=== PATIENT | female | born 1955 | race Caucasian/White ===

== ENCOUNTER → 2019-12-24 10:13 | Outpatient (CLI) | payer MEDICARE, OTHER, SELFPAY ==
[2019-12-24 12:16] LABS: Alanine Aminotransferase 20 IU/L (<35); Albumin 4.2 g/dL (3.5-5.0); Albumin Globulin Ratio 1.4 (1.0-2.8); Alkaline Phosphatase 124 U/L (38-126); Aspartate Aminotransferase 21 IU/L (14-36); BUN Creatinine Ratio 21.9 (6-22); Bilirubin Total 0.7 mg/dL (0.2-1.3); Blood Urea Nitrogen 16 mg/dL (7-17); Calcium 9.3 mg/dL (8.4-10.2); Carbon Dioxide 25 mmol/L (22-32); Chloride 105 mmol/L (98-107); Cholesterol 210 mg/dL (140-199); Estimated Glomerular Filt Rate > 60.0 mL/min (>60); Glucose 114 mg/dL (80-110); HDL Cholesterol 52 mg/dL (40-60); HEMOLYSIS < 15 (0-50); LDL Cholesterol Calculated 128 mg/dL (<100); Potassium 4.2 mmol/L (3.4-5.1); Sodium 134 mmol/L (137-145); Total Protein 7.2 g/dL (6.3-8.2); Triglycerides 150 mg/dL (35-150)
== END ==
PROVIDERS: PCP Internal Medicine; Referring Provider Internal Medicine; Visit Provider Internal Medicine
DX: I10 Essential (primary) hypertension (principal); E78.5 Hyperlipidemia, unspecified
CPT/HCPCS: 36415; 80053; 80061

== ENCOUNTER → 2020-10-24 16:16 | Outpatient (CLI) | payer MEDICARE, OTHER, SELFPAY ==
--- NOTE | 2020-10-24 | DI.MRI.S_ITS ---
PROCEDURE: MR CERVICAL SPINE WO CON INDICATIONS: Cervicalgia TECHNIQUE: Noncontrast sagittal T1 spin echo and T2 fast spin echo, sagittal STIR, foraminal oblique sagittal T2 fast spin echo, and axial gradient echo or T2 fast spin echo through the cervical spine. COMPARISON: None. FINDINGS: Image quality: This examination is limited by involuntary motion artifact. Images are repeated, with some improvement. Alignment and Curvature: There is normal bony alignment. Bone Marrow: Marrow demonstrates normal overall signal. Spinal Cord: Visualized spinal cord has normal size and signal. No cerebellar tonsillar herniation. Paraspinous Soft Tissues: No paravertebral masses. Prevertebral soft tissues are normal in thickness. C2-C3: The disc height is well-preserved. Loss of disc signal is seen at this level. A mild degree of generalized disc osteophyte complex is seen. There is [id number] right-sided and minimal left-sided neural foraminal narrowing seen. Mild central canal narrowing is seen. C3-C4: The disc height is well-preserved. Loss of disc signal is seen at this level. Moderate generalized disc osteophyte complex is seen. There is mild right-sided and moderate left-sided facet hypertrophy seen. There is moderate to severe left-sided and at least moderate right-sided neural foraminal narrowing seen. Mild to moderate central canal narrowing is seen, with minimal mass effect upon the ventral spinal cord. C4-C5: Mild loss of disc height is seen. Loss of disc signal is seen. Moderate generalized disc osteophyte complex is seen. There is a central disc protrusion. Moderate facet joint hypertrophy is seen. There is moderate to severe bilateral neural foraminal narrowing seen. Moderate to severe central canal narrowing is seen, with associated mass effect upon the spinal cord. C5-C6: The disc height is well-preserved. Loss of disc signal is seen at this level. Mild to moderate disc osteophyte complex is seen, with a mild central disc osteophyte protrusion. Mild facet joint hypertrophy is seen. Moderate bilateral neural foraminal narrowing is seen. Moderate central canal narrowing is seen. There is associated mass effect upon the ventral spinal cord. C6-C7: The disc height is well-preserved. Loss of disc signal is seen at this level. Mild to moderate disc osteophyte complex is seen. Mild facet joint hypertrophy is seen. Mild bilateral neural foraminal narrowing is seen. Minimal central canal narrowing is seen. C7-T1: Mild loss of disc height is seen. Loss of disc signal is seen. Moderate disc osteophyte complex is seen, which is eccentric to the right. There is moderate to severe right-sided and moderate left-sided neural foraminal narrowing seen. The central canal is widely patent. IMPRESSION: Cervical spine degenerative changes are seen, which are overall worst at the C4-C5 level. Dictated by: Alec Vaughn M.D. on 10/24/2020 at 17:17 Approved by: Alec Vaugnh M.D. on 10/24/2020 at 17:21
== END ==
PROVIDERS: PCP Internal Medicine; Referring Provider Internal Medicine; Visit Provider Internal Medicine
DX: M50.321 Other cervical disc degeneration at C4-C5 level (principal); M48.02 Spinal stenosis, cervical region
CPT/HCPCS: 72141

== ENCOUNTER → 2021-12-20 13:25 | Outpatient (CLI) | payer MEDICARE, OTHER, SELFPAY ==
--- NOTE | 2021-12-20 | DI.MG.S_ITS ---
BILATERAL DIGITAL SCREENING MAMMOGRAM 3D/2D WITH CAD: 12/20/2021 CLINICAL: Routine screening. Comparison is made to exams dated: 05/09/2014 mammogram and 07/11/2015 mammogram - outside facility. There are scattered fibroglandular elements in both breasts. Current study was also evaluated with a Computer Aided Detection (CAD) system. There are benign vascular calcifications in the left breast. No significant masses, calcifications, or other findings are seen in either breast. There has been no significant interval change. IMPRESSION: BENIGN There is no mammographic evidence of malignancy. A 1 year screening mammogram is recommended. Based on the Tyrer Cuzick model (a risk assessment model) the patient's lifetime risk is 4.5% and her 10 year risk is 2.3%. According to the ACR, ACS, and NCCN guidelines, an annual breast MRI exam along with mammogram is recommended if the patient's lifetime risk is 20% or greater. This exam was interpreted at Station ID: [id number]. NOTE: For mammograms, a report in lay terms will be sent to the patient. Approximately 15% of breast malignancies will not be visualized mammographically. In the management of a palpable breast mass, a negative mammogram must not discourage biopsy of a clinically suspicious lesion. Electronically Signed By: Dakota milian/jared:12/25/2021 11:24:40 letter sent: Normal Exam ACR BI-RADS Category 2: Benign Finding(s) 3342F
== END ==
PROVIDERS: PCP Internal Medicine; Referring Provider Internal Medicine; Visit Provider Internal Medicine
DX: Z13.820 Encounter for screening for osteoporosis (principal); Z12.31 Encounter for screening mammogram for malignant neoplasm of breast; Z78.0 Asymptomatic menopausal state; M85.89 Other specified disorders of bone density and structure, multiple sites
CPT/HCPCS: 77063; 77067; 77080

== ENCOUNTER → 2023-10-02 14:48 | Outpatient (CLI) | payer MEDICARE, OTHER, SELFPAY ==
--- NOTE | 2023-10-02 14:50 | DI.MG.S_ITS ---
BILATERAL DIGITAL SCREENING MAMMOGRAM 3D/2D WITH CAD: 10/02/2023 CLINICAL: Routine screening. Comparison is made to exams dated: 12/20/2021 mammogram - [facility], 07/11/2015 mammogram, and 05/09/2014 mammogram - outside facility. There are scattered areas of fibroglandular density in both breasts (category b / 25%-50% glandular tissue). Current study was also evaluated with a Computer Aided Detection (CAD) system. There are benign vascular calcifications in both breasts. No significant masses, calcifications, or other findings are seen in either breast. There has been no significant interval change. IMPRESSION: BENIGN There is no mammographic evidence of malignancy. A 1 year screening mammogram is recommended. Based on the Tyrer Cuzick model (a risk assessment model) the patient's lifetime risk is 4.0% and her 10 year risk is 2.3%. According to the ACR, ACS, and NCCN guidelines, an annual breast MRI exam along with mammogram is recommended if the patient's lifetime risk is 20% or greater. This exam was interpreted at Station ID: [id number]. NOTE: For mammograms, a report in lay terms will be sent to the patient. Approximately 15% of breast malignancies will not be visualized mammographically. In the management of a palpable breast mass, a negative mammogram must not discourage biopsy of a clinically suspicious lesion. Electronically Signed By: Sigrid dupree/jared:10/02/2023 16:03:16 letter sent: Normal Exam ACR BI-RADS Category 2: Benign Finding(s) 3342F
== END ==
PROVIDERS: Referring Provider Internal Medicine; Visit Provider Internal Medicine
DX: Z12.31 Encounter for screening mammogram for malignant neoplasm of breast (principal); R92.323 Mammographic fibroglandular density, bilateral breasts
CPT/HCPCS: 77063; 77067

== ENCOUNTER 2024-07-15 15:35 | Inpatient (IN) | payer MEDICARE, OTHER, SELFPAY ==
[2024-07-15] VITALS (19 sets, daily range): BP systolic 192–234; BP diastolic 86–100; PULSE 53–76; RESP 16–25; TEMP 36.8–36.9; O2SAT 90–99; BMI 33.1
--- NOTE | 2024-07-15 | DI.MRI.S_ITS ---
PROCEDURE: MR HEAD/BRAIN WO CON INDICATIONS: assess for CVA with brain and brainstem MRI TECHNIQUE: Non-contrast axial T1 spin echo, axial T2 fast spin echo, sagittal and axial FLAIR, coronal T2 fast spin echo, axial gradient echo, axial diffusion and ADC through the brain. COMPARISON: [facility], CT, CT ANGIO HEAD AND NECK, 07/15/2024, 20:29. [facility], CT, CT HEAD/BRAIN WO CON, 07/15/2024, 20:29. FINDINGS: Image quality: Excellent. CSF spaces: Ventricles appear symmetric in size and shape. Basal cisterns are patent. No extra-axial fluid collections. Brain: No intracranial bleeds or mass effects. There is cerebral volume loss for age. There are periventricular and deep white matter chronic small vessel ischemic changes. Brainstem appears normal. Diffusion-weighted images show no acute infarct. No chronic ischemic insults. Normal intravascular flow voids are present. Skull and face: Calvarial bone marrow is normal in signal. Orbits are normal. Sinuses: Sinuses and mastoids are clear. IMPRESSION: No findings of acute or subacute infarction can be seen. Dictated by: Alec Vaughn M.D. on 07/16/2024 at 9:55 Approved by: Alec Vaughn M.D. on 07/16/2024 at 9:56
--- NOTE | 2024-07-15 15:53 | EKG_ITS ---
[address] [address] Test Date: 2024-07-15 Pat Name: Esterlla Harris Department: [facility] Room: Gender: Female Senior Statistical Programmer: NINO : 1955 Requested By: Order Number: [id number] Reading MD: Tyler Mcclain MD Measurements Intervals Vian Rate: 58 P: 53 NE: 152 QRS: 8 QRSD: 82 T: 30 QT: 430 QTc: 422 Interpretive Statements Sinus bradycardia Cannot rule out Anterior infarct , age undetermined Electronically Signed On 07-15-2024 16:56:02 PST by Tyler Mcclain MD
--- NOTE | 2024-07-15 15:53 | DI.RAD.S_ITS ---
PROCEDURE: XR CHEST 1V INDICATIONS: chest pain TECHNIQUE: One view of the chest was acquired. COMPARISON: None. FINDINGS: Surgical changes and devices: None. Lungs and pleura: Lungs are clear. No pleural effusions or pneumothorax. Mediastinum: Mediastinal contours appear normal. Heart size is normal. Bones and chest wall: No suspicious bony lesions. Overlying soft tissues appear unremarkable. IMPRESSION: No acute cardiopulmonary abnormality is seen. Dictated by: Parth Myers M.D. on 07/15/2024 at 16:40 Approved by: Parth Myers M.D. on 07/15/2024 at 16:41
[2024-07-15 16:18] LABS: Add Manual Diff / Slide Review NO; Basophils Absolute Auto 0 /uL (0-100); Basophils Percent Auto 0.5 % (0-2); Eosinophils Absolute Auto 300 /uL (0-450); Eosinophils Percent Auto 3.5 % (2-4); Hematocrit 41.5 % (36-46); Lymphocytes Absolute Auto 2600 /uL (1100-4500); Lymphocytes Percent Auto 35.5 % (25-40); Mean Corpuscular HGB Conc 33.8 % (30-36); Mean Corpuscular Hemoglobin 30.8 PG (26-34); Monocytes Absolute Auto 700 /uL (0-900); Monocytes Percent Auto 9.9 % (3-14); Neutrophils Absolute Auto 3700 /uL (1500-7000); Neutrophils Percent Auto 50.6 % (50-75); Platelet Count 310 X10^3/uL (150-400); Red Blood Cell Count 4.56 X10^6/uL (4.0-5.2); Red Cell Distribution Width 13.4 % (11.6-14.8); White Blood Cell Count 7.4 X10^3/uL (4.5-11.0)
[2024-07-15 16:33] LABS: PTT Partial Thromboplastin Tim 49 SECONDS (25.1-36.5)
[2024-07-15 16:39] LABS: Alanine Aminotransferase 23 IU/L (<35); Albumin 4.4 g/dL (3.5-5.0); Albumin Globulin Ratio 1.3 (1.0-2.8); Alkaline Phosphatase 99 U/L (38-126); Aspartate Aminotransferase 30 IU/L (14-36); Bilirubin Total 0.4 mg/dL (0.2-1.3); Blood Urea Nitrogen 20 mg/dL (7-17); Calcium 9.1 mg/dL (8.4-10.2); Carbon Dioxide 25 mmol/L (22-32); Chloride 106 mmol/L (98-107); Creatine Kinase 76 U/L (30-135); Estimated Glomerular Filt Rate > 60 mL/min (>60); Globulin 3.5 g/dL (1.7-4.1); Glucose 102 mg/dL (80-110); HEMOLYSIS < 15 (0-50); Lipase 177 U/L (23-300); Magnesium 2.4 mg/dL (1.6-2.3); Potassium 4.3 mmol/L (3.4-5.1); Sodium 139 mmol/L (137-145); Total Protein 7.9 g/dL (6.3-8.2)
[2024-07-15 16:45] LABS: Bacteria Urine Occasional (0-1); Culture Indicated Urine Cult Not Indicated; RBC Urine 0-1/HPF (0-5/HPF); Squamous Epithelial Cell Urine 0-1 /HPF (0-5/HPF); Urine Volume 10mL (spun); WBC Urine 0-1/HPF (0-5/HPF)
[2024-07-15 16:51] LABS: NT-proBNP (BNP-Adult 18+) 130 pg/mL (<125); Troponin I < 0.012 ng/mL (0.01-0.034)
--- NOTE | 2024-07-15 19:57 | ED_ITS ---
HPI - General Adult General Chief complaint: Dizziness Stated complaint: light headed, dizzy Time Seen by Provider: 07/15/24 19:46 Source: patient Mode of arrival: Ambulatory History of Present Illness HPI narrative: 68-year-old female with history of hypertension and hyperlipidemia, no known previous stroke, ongoing chronic dizziness lightheadedness, at 2:00 p.m. today felt more dizzy and with new atraumatic posterior occipital headache, no spinning sensation. No focal weakness to face arm or leg. Still felt like she could do her activities and walk and move her arms and legs. No visual complaints. Denied associated chest pain. Related Data Home Medications Medication Instructions Recorded Confirmed albuterol sulfate 90 mcg/actuation 2 puff inhalation Q4HR PRN Wheezing 07/15/24 07/15/24 aerosol inhaler fluticasone propionate 44 2 puff inhalation Q4HR wheezing, 07/15/24 07/15/24 mcg/actuation HFA aerosol inhaler fluticasone propionate 50 1 spray intranasal DAILY 07/15/24 07/15/24 mcg/actuation nasal spray,suspension loratadine 10 mg tablet 10 mg PO DAILY 07/15/24 07/15/24 losartan 25 mg tablet 25 mg PO DAILY 07/15/24 07/15/24 metoprolol succinate 50 mg 50 mg PO DAILY 07/15/24 07/15/24 tablet,extended release 24 hr rosuvastatin 20 mg tablet 20 mg PO DAILY 07/15/24 07/15/24 Allergies Allergy/AdvReac Type Severity Reaction Status Date / Time ibuprofen AdvReac Nausea Verified 07/15/24 15:43 Patient History Social History household members: family Smoking Status: Current every day smoker Smoking Status: Current every day smoker tobacco type: cigarettes Exam Narrative Exam Narrative: GENERAL: Well-developed patient, in mild distress. HEAD: Atraumatic. Normocephalic. EYES: Pupils equal round and reactive. Extraocular motions intact. No scleral icterus. No injection or drainage. ENT: Nose without bleeding, purulent drainage. Throat without erythema, tonsillar hypertrophy or exudate. Airway patent. NECK: Trachea midline. Non tender CARDIOVASCULAR: Regular rate and rhythm without murmurs, gallops, or rubs. RESPIRATORY: Clear to auscultation. Breath sounds equal bilaterally. No wheezes, rales, or rhonchi. GASTROINTESTINAL: Abdomen soft, non-tender, nondistended. EXTREMITIES: No edema or joint tenderness. BACK: Nontender without deformity or crepitance. No flank tenderness. NEURO: AOx3. Pupils equal round reactive, conjugate gaze, EOMI, no diplopia on vertical or horizontal gaze. No nystagmus. Normal eyebrow raise, no facial droop, extrudes tongue and deviates tongue right and left without difficulties, speech seems clear. Motor 5/5 upper extremity strength. Motor 5/5 lower extremity extremities. [id number] testing normal bilaterally. SKIN: No rash or erythema of visible areas Initial Vital Signs Initial Vital Signs: Vital Signs Temperature 98.2 F 07/15/24 15:43 Pulse Rate 65 07/15/24 15:43 Respiratory Rate 18 07/15/24 15:43 Blood Pressure 211/86 H 07/15/24 15:43 Pulse Oximetry 97 07/15/24 15:43 Oxygen Delivery Method Room Air 07/15/24 15:43 Course Orders Ordered: ED Orders 07/15/24 20:00 CT angio head and neck Stat CT head/brain wo con Stat 07/15/24 22:29 Consult to Occupational Therapy Evaluate & Treat Consult to Physical Therapy Evaluate & Treat 07/15/24 22:30 Basic Metabolic Panel DAILY Complete Blood Count AUTO DIFF DAILY Acetaminophen (Acetaminophen 325 Mg Tablet) 650 mg PO Q6H PRN PRN Reason: Fever/Mild Pain (1-3) Albuterol (Albuterol 2.5 Mg/3 Ml Neb (Adult)) 2.5 mg INH Q4HR PRN PRN Reason: Wheezing Aspirin (Aspirin Ec 81 Mg Tablet) 81 mg PO DAILY [facility] Atorvastatin Calcium (Atorvastatin 20 Mg Tablet) 40 mg PO DAILY [facility] Budesonide (Budesonide 0.5 Mg/2 Ml Neb) 0.5 mg INH RTBID [facility] Fluticasone Propionate (Fluticasone 120 [place]/16 Gm [place].Susp) 1 spray NASAL DAILY [facility] Heparin Sodium (Porcine) (Heparin 5,000 Unit/Ml Vial) 5,000 unit SUBCUT BID [facility] Last Admin: 07/15/24 23:10 Dose: 5,000 unit Documented By: TERRY Hydralazine HCl (Hydralazine 20 Mg/Ml Vial) 10 mg IV Q6HR PRN PRN Reason: SBP > 220 Loratadine (Loratadine 10 Mg Tablet) 10 mg PO DAILY [facility] Naloxone HCl (Naloxone 0.4 Mg/Ml Vial) 0.2 mg IV Q2MIN PRN PRN Reason: Opiate Reversal Discontinued Medications Aspirin (Aspirin 81 Mg Chew Tab) 324 mg PO NOW ONE Stop: 07/15/24 22:17 Last Admin: 07/15/24 23:10 Dose: 324 mg Documented By: TERRY Atorvastatin Calcium (Atorvastatin 20 Mg Tablet) 80 mg PO NOW ONE Stop: 07/15/24 22:17 Last Admin: 07/15/24 23:10 Dose: 80 mg Documented By: TERRY Hydralazine HCl (Hydralazine 20 Mg/Ml Vial) 5 mg IV NOW ONE Stop: 07/15/24 20:33 Last Admin: 07/15/24 20:43 Dose: 5 mg Documented By: TERRY Non-Formulary Medication (Albuterol Sulfate) 2 puff INHALATION Q4HR PRN PRN Reason: Wheezing Non-Formulary Medication (Fluticasone Propionate) 2 puff INHALATION Q4HR [facility] Vital Signs Vital signs: Vital Signs - 8 hr 07/15/24 20:10 07/15/24 20:13 07/15/24 20:13 Pulse Rate 58 L 62 Respiratory Rate 22 Blood Pressure 234/97 H Pulse Oximetry 95 Oxygen Delivery Method 07/15/24 20:30 07/15/24 20:43 07/15/24 21:04 Pulse Rate 54 L 53 L 76 Respiratory Rate 20 Blood Pressure 234/97 H 234/97 H Pulse Oximetry 96 90 L Oxygen Delivery Method 07/15/24 21:14 07/15/24 21:30 07/15/24 21:33 Pulse Rate 56 L 70 65 Respiratory Rate 18 25 H Blood Pressure 220/100 H 220/100 H Pulse Oximetry 98 98 Oxygen Delivery Method Room Air 07/15/24 22:00 07/15/24 22:07 07/15/24 22:07 Pulse Rate 54 L 54 L Respiratory Rate 23 22 Blood Pressure 200/88 H 200/88 H Pulse Oximetry 97 97 Oxygen Delivery Method Medical Decision Making Lab Data Lab results reviewed: Yes I reviewed the patient's lab results. Lab results narrative: White blood cell count 7400, hemoglobin 14, platelets adequate. Basic metabolic panel unremarkable, glucose 102. Liver functions normal, lipase normal. Troponin negative/unmeasurable. Urine dip negative. 07/15/24 16:08 07/15/24 16:08 Labs: Lab Results 07/15/24 07/15/24 Range/Units 16:08 16:25 WBC 7.4 (4.5-11.0) X10^3/uL RBC 4.56 (4.0-5.2) X10^6/uL Hgb 14.0 (12.0-16.0) g/dL Hct 41.5 (36-46) % MCV 91.0 (80-100) fL MCH 30.8 (26-34) PG MCHC 33.8 (30-36) % RDW 13.4 (11.6-14.8) % Plt Count 310 (150-400) X10^3/uL Neut % (Auto) 50.6 (50-75) % Lymph % (Auto) 35.5 (25-40) % [place] % (Auto) 9.9 (3-14) % Eos % (Auto) 3.5 (2-4) % Baso % (Auto) 0.5 (0-2) % Neut # (Auto) 3700 (0990-4837) /uL Lymph # (Auto) 2600 (7743-5933) /uL [place] # (Auto) 700 (0-900) /uL Eos # (Auto) 300 (0-450) /uL Baso # (Auto) 0 (0-100) /uL PT 11.0 (9.4-12.5) SECONDS INR 1.0 (0.9-1.3) APTT 49 H (25.1-36.5) SECONDS Sodium 139 (137-145) mmol/L Potassium 4.3 (3.4-5.1) mmol/L Chloride 106 (98-107) mmol/L Carbon Dioxide 25 (22-32) mmol/L BUN 20 H (7-17) mg/dL Creatinine 0.74 (0.52-1.04) mg/dL Estimated GFR > 60 (>60) mL/min BUN/Creatinine Ratio 27.0 H (6-22) Glucose 102 (80-110) mg/dL Calcium 9.1 (8.4-10.2) mg/dL Magnesium 2.4 H (1.6-2.3) mg/dL Total Bilirubin 0.4 (0.2-1.3) mg/dL AST 30 (14-36) IU/L ALT 23 (<35) IU/L Alkaline Phosphatase 99 (38-126) U/L Total Creatine Kinase 76 (30-135) U/L Troponin I < 0.012 (0.01-0.034) ng/mL NT-Pro-B Natriuret Pep 130 H (<125) pg/mL Total Protein 7.9 (6.3-8.2) g/dL Albumin 4.4 (3.5-5.0) g/dL Globulin 3.5 (1.7-4.1) g/dL Albumin/Globulin Ratio 1.3 (1.0-2.8) Lipase 177 (23-300) U/L Urine RBC 0-1/hpf (0-5/HPF) Urine WBC 0-1/hpf (0-5/HPF) Ur Squamous Epith Cells 0-1 /hpf (0-5/HPF) Urine Bacteria Occasional (0-1) (None) Ur Culture Indicated? Cult not indicated Vol Urine Centrifuged 10ml (spun) Urine Dip Bedside Urine Glucose Negative Bedside Urine Bilirubin - Negative Bedside Urine Ketone - Negative Urine Specific [place] 1.025 Bedside Urine Occult Blood +/- Bedside Urine pH 6 Bedside Urine Protein - Negative Bedside Urine Urobilinogen - Negative Bedside Urine Nitrite - Negative Bedside Urine Leukocytes - Negative Esterase Point of care testing: Urine Dip Bedside Urine Glucose Negative Bedside Urine Bilirubin - Negative Bedside Urine Ketone - Negative Urine Specific [place] 1.025 Bedside Urine Occult Blood +/- Bedside Urine pH 6 Bedside Urine Protein - Negative Bedside Urine Urobilinogen - Negative Bedside Urine Nitrite - Negative Bedside Urine Leukocytes - Negative Esterase Imaging Data CT scan - head: Radiologist's Impression: [place] [address] CT Scan Report Signed Patient: Estrella Harris MR#: [id number] : 1955 Acct:[id number] Age/Sex: 68 / F Date of Service: 07/15/24 Loc: ED Accession Number: [id number] Procedure: CT head/brain wo con Ordering Provider: Yair Carlton MD PROCEDURE: CT HEAD/BRAIN WO CON INDICATIONS: dizzy, inc BP TECHNIQUE: Noncontrast 4.5 mm thick angled axial sections acquired from the foramen magnum to the vertex, with coronal and sagittal reformats. For radiation dose reduction, the following was used: automated exposure control, adjustment of mA and/or kV according to patient size. COMPARISON: [facility], CT, CT ANGIO HEAD AND NECK, 07/15/2024, 20:29. FINDINGS: Image quality: Diagnostic. CSF spaces: Basal cisterns are patent. No extra-axial fluid collections. The ventricles are symmetric in size and shape. Brain: Asymmetric, mild hypoattenuation in the right cerebellar hemisphere (2/5-8; 5/17) and right middle cerebellar peduncle. No intracranial bleeds or masses. There is cerebral volume loss for age, with resultant ventricular and sulcal prominence. There are periventricular and deep white matter chronic small vessel ischemic changes. There is intracranial internal carotid artery atherosclerosis. Nonspecific bilateral globus pallidum calcifications (07/06-). Skull and face: Calvarium and visualized facial bones appear intact, without suspicious lesions. Sinuses: Visualized sinuses and mastoids are clear. IMPRESSION: Asymmetric right cerebellar hemispheric hypoattenuation, which may represent sequelae of an acute infarct, PRES, or beam hardening artifact. MRI brain without contrast recommended for evaluation. These findings were communicated via telephone to the ordering provider, Dr Carlton, by Tyrell Melendez MD on 07/15/2024 at 9:34 p.m. Dictated by: Tyrell Melendez M.D. on 07/15/2024 at 21:26 Approved by: Tyrell Melendez M.D. on 07/15/2024 at 21:34 CTA - brain/neck: Radiologist's Impression: [address] [address] [address] Scan Report Signed Patient: Estrella Harris MR#: [id number] : 1955 Acct:[id number] Age/Sex: 68 / F Date of Service: 07/15/24 Loc: ED Accession Number: [id number] Procedure: CT angio head and neck Ordering Provider: Yair Carlton MD PROCEDURE: CT ANGIO HEAD AND NECK INDICATIONS: dizzy TECHNIQUE: After the administration of intravenous contrast, 1 mm thick sections acquired from the aortic arch through the [place] of [place]. 3-dimensional peipoxt-pkyhjzgei-xsdzvpaduy (MIP) and/or volume rendering reformats were acquired of the central intracranial vasculature and neck separately. For radiation dose reduction, the following was used: automated exposure control, adjustment of mA and/or kV according to patient size. COMPARISON: None. FINDINGS: Image quality: Diagnostic. HEAD CT ANGIOGRAPHY: Anterior circulation: There is a origin of the posterior cerebral arteries bilaterally. Intracranial internal carotid arteries are normal in size and flow. The flow within the paired anterior cerebral arteries is normal and symmetric. The flow within the middle cerebral arteries is normal and symmetric. The anterior communicating artery is seen. No aneurysms are seen. Posterior circulation: Visualized portions of the vertebral arteries demonstrate normal caliber, and join to form a normal appearing basilar artery. Flow within the posterior cerebral arteries is normal and symmetric. No aneurysms are seen. NECK CT ANGIOGRAPHY: Carotid system: There is approximately 40 percent stenosis at of the right proximal internal carotid artery at the bifurcation (/25). The great vessels demonstrate a conventional anatomy as they arise from the aortic arch. The origins of the common carotid arteries appear patent. The common carotid arteries demonstrate normal caliber and courses. The bifurcation regions are both widely patent. The internal carotid arteries otherwise demonstrate normal calibers and courses. Posterior circulation: The right vertebral artery is dominant in the posterior circulation. The left vertebral artery terminates as the posterior inferior cerebellar artery (4/142-50). The origins of the vertebral arteries both appear widely patent. The basilar artery is patent. The superior cerebellar artery origins are patent. Soft tissues: Visualized neck soft tissues demonstrate no suspicious abnormalities. Bones: No suspicious bony lesions. Visualized cervical spine appears normally aligned. IMPRESSION: 1. No large vessel occlusion, dissection, or aneurysm in visualized head and neck arterial vasculature. 2. Approximately 40 percent right proximal internal carotid artery stenosis. Any quantitative measurements of stenosis were performed using NASCET criteria. Dictated by: Tyrell Melendez M.D. on 07/15/2024 at 21:35 Approved by: Tyrell Melendez M.D. on 07/15/2024 at 21:41 Chest x-ray: Radiologist's Impression: [address] [address] XRay Report Signed Patient: Estrella Harris MR#: [id number] : 1955 Acct:[id number] Age/Sex: 68 / F Date of Service: 07/15/24 Loc: ED Accession Number: [id number] Procedure: XR chest 1V Ordering Provider: Gerson King D.O. PROCEDURE: XR CHEST 1V INDICATIONS: chest pain TECHNIQUE: One view of the chest was acquired. COMPARISON: None. FINDINGS: Surgical changes and devices: None. Lungs and pleura: Lungs are clear. No pleural effusions or pneumothorax. Mediastinum: Mediastinal contours appear normal. Heart size is normal. Bones and chest wall: No suspicious bony lesions. Overlying soft tissues appear unremarkable. IMPRESSION: No acute cardiopulmonary abnormality is seen. Dictated by: Parth Myers M.D. on 07/15/2024 at 16:40 Approved by: Parth Myers M.D. on 07/15/2024 at 16:41 ECG Data Attestation: I personally reviewed and interpreted this ECG as follows: Interpretation: Sinus bradycardia with rate of 58, no obvious ST segment elevation or depression changes. CO 152, QRS 82, QTC 422. MDM Narrative Medical decision making narrative: 68-year-old right-handed female, history of hypertension hyperlipidemia, no known prior stroke, chronic dizziness, complains of increased dizziness 2:00 p.m., systolic blood pressure 234, nonfocal neuro exam, occipital headache, CT head noncontrast study to evaluate for hemorrhage/mass/stroke, we will add CT angiogram head and neck vessels for stroke evaluation. Markedly elevated blood pressure, heart rate 50s, no labetalol for now, we will give low-dose hydralazine single dose for now, pending CT results. 2210, case discussed with Neu[facility] Dr. Talbert, who reviewed images, there is perhaps a small cerebellar stroke versus some other lesion. Advises admission here, advises aspirin 324 mg, atorvastatin 80 mg, MRI brain without contrast, TTE with bubble study, fasting lipids, hemoglobin A1c. Regarding blood pressure control parameters would prefer systolic blood pressure less than 220, can use nicardipine to keep less than 220 if needed, allow permissive hypertension the 1st 24 hours and then would start treating blood pressure more aggressively, she can reconsult with hospitalist service here. Advice relayed to patient/, agree with need for admission, willing to be admitted here. Last blood pressure 200/88, no further blood pressure interventions for now, neuro recommended systolic blood pressure less than 220 permissive hypertension for the 1st 24 hours and then more aggressive blood pressure control, can further consult for recommendations, heart rate 50s noted, no labetalol, could use IV nicardipine for further blood pressure control measures. P.o. aspirin chewable, p.o. Lipitor dose. Hospitalist has been paged. Case discussed with hospitalist Dr. Massey who accepts patient for admission. Critical Care Time Critical Care Time Critical Care Time: Yes Total Critical Care Time: 35 Attestation: The high probability of a clinically significant, sudden or life threatening deterioration of the [neuro, cerebrovascular] system(s) required my full and direct attention, intervention and personal management. The aggregate critical care time was [35] minutes. This time is in addition to time spent performing reported procedures but includes the following: [x] Data Review and interpretation [x] Patient assessment and monitoring of vital signs [x] Documentation [x] Medication orders and management Discharge Plan Departure Patient Disposition: Admitted As Inpatient Clinical Impression: Dizziness, Stroke Admit Date/Time: 07/15/24 22:58 Admit Provider: Wale Tilley
--- NOTE | 2024-07-15 20:00 | DI.CT.S_ITS ---
PROCEDURE: CT ANGIO HEAD AND NECK INDICATIONS: dizzy TECHNIQUE: After the administration of intravenous contrast, 1 mm thick sections acquired from the aortic arch through the [place] of [place]. 3-dimensional frwvuen-krgvimwoz-repjxqouon (MIP) and/or volume rendering reformats were acquired of the central intracranial vasculature and neck separately. For radiation dose reduction, the following was used: automated exposure control, adjustment of mA and/or kV according to patient size. COMPARISON: None. FINDINGS: Image quality: Diagnostic. HEAD CT ANGIOGRAPHY: Anterior circulation: There is a origin of the posterior cerebral arteries bilaterally. Intracranial internal carotid arteries are normal in size and flow. The flow within the paired anterior cerebral arteries is normal and symmetric. The flow within the middle cerebral arteries is normal and symmetric. The anterior communicating artery is seen. No aneurysms are seen. Posterior circulation: Visualized portions of the vertebral arteries demonstrate normal caliber, and join to form a normal appearing basilar artery. Flow within the posterior cerebral arteries is normal and symmetric. No aneurysms are seen. NECK CT ANGIOGRAPHY: Carotid system: There is approximately 40 percent stenosis at of the right proximal internal carotid artery at the bifurcation (4/25). The great vessels demonstrate a conventional anatomy as they arise from the aortic arch. The origins of the common carotid arteries appear patent. The common carotid arteries demonstrate normal caliber and courses. The bifurcation regions are both widely patent. The internal carotid arteries otherwise demonstrate normal calibers and courses. Posterior circulation: The right vertebral artery is dominant in the posterior circulation. The left vertebral artery terminates as the posterior inferior cerebellar artery (4/142-50). The origins of the vertebral arteries both appear widely patent. The basilar artery is patent. The superior cerebellar artery origins are patent. Soft tissues: Visualized neck soft tissues demonstrate no suspicious abnormalities. Bones: No suspicious bony lesions. Visualized cervical spine appears normally aligned. IMPRESSION: 1. No large vessel occlusion, dissection, or aneurysm in visualized head and neck arterial vasculature. 2. Approximately 40 percent right proximal internal carotid artery stenosis. Any quantitative measurements of stenosis were performed using NASCET criteria. Dictated by: Tyrell Melendez M.D. on 07/15/2024 at 21:35 Approved by: Tyrell Melendez M.D. on 07/15/2024 at 21:41
--- NOTE | 2024-07-15 20:00 | DI.CT.S_ITS ---
PROCEDURE: CT HEAD/BRAIN WO CON INDICATIONS: dizzy, inc BP TECHNIQUE: Noncontrast 4.5 mm thick angled axial sections acquired from the foramen magnum to the vertex, with coronal and sagittal reformats. For radiation dose reduction, the following was used: automated exposure control, adjustment of mA and/or kV according to patient size. COMPARISON: [facility], CT, CT ANGIO HEAD AND NECK, 07/15/2024, 20:29. FINDINGS: Image quality: Diagnostic. CSF spaces: Basal cisterns are patent. No extra-axial fluid collections. The ventricles are symmetric in size and shape. Brain: Asymmetric, mild hypoattenuation in the right cerebellar hemisphere (06/30-8; 10/09) and right middle cerebellar peduncle. No intracranial bleeds or masses. There is cerebral volume loss for age, with resultant ventricular and sulcal prominence. There are periventricular and deep white matter chronic small vessel ischemic changes. There is intracranial internal carotid artery atherosclerosis. Nonspecific bilateral globus pallidum calcifications (07/06-). Skull and face: Calvarium and visualized facial bones appear intact, without suspicious lesions. Sinuses: Visualized sinuses and mastoids are clear. IMPRESSION: Asymmetric right cerebellar hemispheric hypoattenuation, which may represent sequelae of an acute infarct, PRES, or beam hardening artifact. MRI brain without contrast recommended for evaluation. These findings were communicated via telephone to the ordering provider, Dr Carlton, by Tyrell Melendez MD on 07/15/2024 at 9:34 p.m. Dictated by: Tyrell Melendez M.D. on 07/15/2024 at 21:26 Approved by: Tyrell Melendez M.D. on 07/15/2024 at 21:34
[2024-07-15] MEDS: HYDRALAZINE 20 MG/ML VIAL 5 MG IV (20:43)
[2024-07-15] MEDS: HEPARIN 5,000 UNIT/ML VIAL 5000 UNIT SUBCUT (23:10)
[2024-07-15] MEDS: ATORVASTATIN 20 MG TABLET 80 MG PO (23:10)
[2024-07-15] MEDS: ASPIRIN 81 MG CHEW TAB 324 MG PO (23:10)
--- NOTE | 2024-07-15 23:29 | PC.NURSE ---
patient reports muscle pains with statins, including atorvastatin, especially at dose of 40 mg daily; she has been taking 20 mg daily - reduced dose due to the muscle pain that improved with lower dose.
[2024-07-16] VITALS (21 sets, daily range): BP systolic 182–230; BP diastolic 82–92; PULSE 56–68; RESP 16–45; TEMP 36.8–36.9; O2SAT 95–99
--- NOTE | 2024-07-16 00:49 | P.HP_ITS ---
History of Present Illness History of Present Illness Chief complaint: light headed, dizzy Narrative: 68-year-old female with past medical history of hyperlipidemia and hypertension presents with headache and lightheadedness. Per the patient report, the patient does have intermittent chronic lightheadedness. However today, around 2 PM, the patient started to have increasing lightheadedness with a posterior occipital headache. The patient denies any focal weakness, numbness or vertigo. The patient also denies any slurred speech or facial drooping. The patient denies any prior history of known CVA or TIA. The patient denies any fever, chills, nausea, vomiting, chest pain, shortness of breath or syncope. In the emergency room, the patient was hemodynamically stable although was very hypertensive. Systolic blood pressure initially was greater than 220. CT scan of the head and neck with and without contrast shows no vessel occlusion but does suggest possible sign of stroke. The impression was asymmetric right cerebral Fermin Caleb spheric content hypoattenuation which may represent sequela I of an acute infarct or an artifact. MRI of the brain is recommended. Stroke neurology was also consulted who agrees and recommended that we obtain an MRI of the brain in the morning and to monitor the patient overnight. The patient was given aspirin and statin. Labs were relatively benign. The patient was nonfocal on exam per ER physician. ON LICENSE OF [facility] Social History Smoking Status: Current every day smoker Meds Home Medications and Allergies Home Medications Medication Instructions Recorded Confirmed Type albuterol sulfate 90 mcg/actuation 2 puff inhalation Q4HR PRN Wheezing 07/15/24 07/15/24 History aerosol inhaler fluticasone propionate 44 2 puff inhalation Q4HR wheezing, 07/15/24 07/15/24 History mcg/actuation HFA aerosol inhaler fluticasone propionate 50 1 spray intranasal DAILY 07/15/24 07/15/24 History mcg/actuation nasal spray,suspension loratadine 10 mg tablet 10 mg PO DAILY 07/15/24 07/15/24 History losartan 25 mg tablet 25 mg PO DAILY 07/15/24 07/15/24 History metoprolol succinate 50 mg 50 mg PO DAILY 07/15/24 07/15/24 History tablet,extended release 24 hr rosuvastatin 20 mg tablet 20 mg PO DAILY 07/15/24 07/15/24 History Allergies Allergy/AdvReac Type Severity Reaction Status Date / Time ibuprofen AdvReac Nausea Verified 07/15/24 15:43 Review of Systems Review of Systems ROS: Yes All systems reviewed with the patient and are negative except as otherwise documented Exam Vital Signs (past 8 hours): - 07/15/24 16:58 07/15/24 17:00 07/15/24 17:01 Pulse Rate 63 61 Respiratory Rate 23 Blood Pressure 226/98 H Pulse Oximetry 98 98 Oxygen Delivery Method 07/15/24 17:01 07/15/24 17:30 07/15/24 17:31 Pulse Rate 60 60 60 Respiratory Rate 24 20 22 Blood Pressure Pulse Oximetry 99 98 98 Oxygen Delivery Method 07/15/24 17:31 07/15/24 20:10 07/15/24 20:13 Pulse Rate 58 L 62 Respiratory Rate 22 Blood Pressure 216/88 H Pulse Oximetry 95 Oxygen Delivery Method 07/15/24 20:13 07/15/24 20:30 07/15/24 20:43 Pulse Rate 54 L 53 L Respiratory Rate 20 Blood Pressure 234/97 H 234/97 H 234/97 H Pulse Oximetry 96 Oxygen Delivery Method 07/15/24 21:04 07/15/24 21:14 07/15/24 21:30 Pulse Rate 76 56 L 70 Respiratory Rate 18 Blood Pressure 220/100 H 220/100 H Pulse Oximetry 90 L 98 Oxygen Delivery Method Room Air 07/15/24 21:33 07/15/24 22:00 07/15/24 22:07 Pulse Rate 65 54 L 54 L Respiratory Rate 25 H 23 22 Blood Pressure 200/88 H Pulse Oximetry 98 97 97 Oxygen Delivery Method 07/15/24 22:07 07/15/24 23:27 Pulse Rate 65 Respiratory Rate 18 Blood Pressure 200/88 H 200/90 H Pulse Oximetry 98 Oxygen Delivery Method Room Air Oxygen Delivery Method Room Air Narrative Exam Narrative: Physical Exam: GENERAL: The patient is not in any acute distressed. Awake and alert. HEENT: Nonicteric sclerae, PERRLA, EOMI. Oropharynx clear. Moist mucous membranes. Conjunctivae appear well perfused. HEART: Regular rate and rhythm without murmurs. No lower extremities edema. LUNGS: Clear to auscultation bilaterally. No wheezing, crackles or rhonchi ABDOMEN: Soft, positive bowel sounds, nontender. SKIN: No rash, no excessive bruising, petechiae, or purpura. NEUROLOGIC: AxO x 3. Cranial nerves II-XII intact without motor/sensory deficit. Objective Labs 07/15/24 16:08 07/15/24 16:08 Labs: Laboratory Results - last 24 hr 07/15/24 07/15/24 16:08 16:25 WBC 7.4 RBC 4.56 Hgb 14.0 Hct 41.5 MCV 91.0 MCH 30.8 MCHC 33.8 RDW 13.4 Plt Count 310 Neut % (Auto) 50.6 Lymph % (Auto) 35.5 [place] % (Auto) 9.9 Eos % (Auto) 3.5 Baso % (Auto) 0.5 Neut # (Auto) 3700 Lymph # (Auto) 2600 [place] # (Auto) 700 Eos # (Auto) 300 Baso # (Auto) 0 PT 11.0 INR 1.0 APTT 49 H Sodium 139 Potassium 4.3 Chloride 106 Carbon Dioxide 25 BUN 20 H Creatinine 0.74 Estimated GFR > 60 BUN/Creatinine Ratio 27.0 H Glucose 102 Calcium 9.1 Magnesium 2.4 H Total Bilirubin 0.4 AST 30 ALT 23 Alkaline Phosphatase 99 Total Creatine Kinase 76 Troponin I < 0.012 NT-Pro-B Natriuret Pep 130 H Total Protein 7.9 Albumin 4.4 Globulin 3.5 Albumin/Globulin Ratio 1.3 Lipase 177 Urine RBC 0-1/hpf Urine WBC 0-1/hpf Ur Squamous Epith Cells 0-1 /hpf Urine Bacteria Occasional (0-1) Ur Culture Indicated? Cult not indicated Vol Urine Centrifuged 10ml (spun) Assessment & Plan Assessment & Plan narrative: Possible CVA. Admit the patient to medical telemetry under observation inpatient. Continue to monitor the patient neurostatus closely. Continue aspirin. Continue statin. PT OT. Will also obtain brain MRI in the morning. Hypertension. Allow for permissive hypertension. Will treat if systolic blood pressure greater than 220. Resume home blood pressure medication once patient is stable. Hyperlipidemia. Check lipid panel and resume home statin. DVT prophylaxis heparin subcu. CODE STATUS full code. Disposition likely home in 1 to 2 days Time-Based Coding :: [TOTAL MINUTES] spent with patient and on the chart (including review of chart, obtaining history, exam, reviewing outside data, placing orders, documenting exam and treatment plan, and counseling patient) on [DATE].
[2024-07-16 05:23] LABS: Add Manual Diff / Slide Review NO; Basophils Absolute Auto 100 /uL (0-100); Basophils Percent Auto 0.8 % (0-2); Eosinophils Absolute Auto 400 /uL (0-450); Eosinophils Percent Auto 3.8 % (2-4); Hematocrit 40.2 % (36-46); Hemoglobin 13.4 g/dL (12.0-16.0); Lymphocytes Absolute Auto 3300 /uL (1100-4500); Lymphocytes Percent Auto 35.6 % (25-40); Mean Corpuscular HGB Conc 33.3 % (30-36); Mean Corpuscular Hemoglobin 30.2 PG (26-34); Mean Corpuscular Volume 90.8 fL (80-100); Monocytes Absolute Auto 900 /uL (0-900); Monocytes Percent Auto 9.2 % (3-14); Neutrophils Absolute Auto 4700 /uL (1500-7000); Neutrophils Percent Auto 50.6 % (50-75); Platelet Count 309 X10^3/uL (150-400); Red Blood Cell Count 4.43 X10^6/uL (4.0-5.2); Red Cell Distribution Width 13.3 % (11.6-14.8); White Blood Cell Count 9.2 X10^3/uL (4.5-11.0)
[2024-07-16 05:39] LABS: BUN Creatinine Ratio 28.6 (6-22); Blood Urea Nitrogen 20 mg/dL (7-17); Calcium 8.9 mg/dL (8.4-10.2); Carbon Dioxide 25 mmol/L (22-32); Chloride 107 mmol/L (98-107); Estimated Glomerular Filt Rate > 60 mL/min (>60); Glucose 102 mg/dL (80-110); HEMOLYSIS 18 (0-50); Potassium 3.7 mmol/L (3.4-5.1); Sodium 139 mmol/L (137-145)
[2024-07-16 05:43] LABS: Hemoglobin A1C% w Est Avg Glu 5.3 % (4.0-6.0)
[2024-07-16 06:22] LABS: Cholesterol 191 mg/dL (140-199); HDL Cholesterol 46 mg/dL (40-60); LDL Cholesterol Calculated 84 mg/dL (<100); Triglycerides 304 mg/dL (35-150)
[2024-07-16] MEDS: FLUTICASONE 120 SPRAY/16 GM SPRAY.SUSP NASAL (09:19)
[2024-07-16] MEDS: LORATADINE 10 MG TABLET PO (09:19)
[2024-07-16] MEDS: ASPIRIN EC 81 MG TABLET PO (09:19)
[2024-07-16] MEDS: ATORVASTATIN 20 MG TABLET 40 MG PO (09:20)
[2024-07-16] MEDS: HEPARIN 5,000 UNIT/ML VIAL 5000 UNIT SUBCUT (09:21)
[2024-07-16] MEDS: BUDESONIDE 0.5 MG/2 ML NEB INH (09:37)
--- NOTE | 2024-07-16 10:45 | PT.IIE ---
Current Diagnoses Cerebral infarction, unspecified (07/15/24) Physical Therapy Inpatient Evaluation/Re-Eval M1 PT/OT-IP Prior Functional Status Start: 07/16/24 12:26 Freq: NEEDED Status: Active Protocol: Document 07/16/24 10:45 AB (Rec: 07/16/24 12:36 AB [id number]) Medical Review Prior Functional Status Medical History Reviewed Yes Communication able to make needs known Mobility and Gait pt stated that she was independent with all mobilities and ambulation without AD Social History Household Members spouse,family Living Arrangements House Number of Floors (Floors) One Floor Number of Stairs To Enter/Railing? 2 steps without rails to enter Home Environment Standard Height Toilet,Walk in Shower Home Equipment Front Wheel Walker,Quad Cane, Straight Cane,Manual Wheelchair,Shower Seat with Backrest Additional Social History Comment pt has her spouse, son and DIL to assist her at home. M2 PT-IP Current Condition Start: 07/16/24 12:26 Freq: NEEDED Status: Active Protocol: Document 07/16/24 10:45 AB (Rec: 07/16/24 12:36 AB [id number]) Physical Therapy Current Condition Current Condition Evaluation Date 07/16/24 Treatment Diagnosis dizziness; r/o CVA; difficulty in walking Onset Date 07/15/24 M3 PT-IP Subjective Start: 07/16/24 12:26 Freq: NEEDED Status: Active Protocol: Document 07/16/24 10:45 AB (Rec: 07/16/24 12:36 AB [id number]) Subjective Physical Therapy Visit Type Type Initial Evaluation Visit Start Time 10:45 Visit Stop Time 11:00 Number of [employer] Visits 0 Physical Therapy Visit Comments Patient Comments agreeable to do PT Therapy Pain Assessment Location Headache Scale Used c/o dizziness; scale not stated Pain Management Techniques Modification of Treatment,Re- positioning M4 PT-IP Mobility and Gait Start: 07/16/24 12:26 Freq: NEEDED Status: Active Protocol: Document 07/16/24 10:45 AB (Rec: 07/16/24 12:36 AB [id number]) PT-Bed Mobility Assessment Supine to Sit Supine to Sit Independent Sit to Supine Sit to Supine Independent PT-Transfer Assessment Sit to and From Stand Sit to and from Stand Independent Equipment Transfer Assistive Device None,Gait Belt Orthotic/Prosthetic Devices or Brace: No Transfer Ability Level of Assist Standby Assistance Comments Mobility Comments pt in bed and family in room. obtained PLOF and home set up. BP: 203/89. pt completed bed mobility indpeendently. sit to stand SBA and ambulated ~ 75 ft without AD. presents with antalgic gait without LOB. pt sat back on EOB. agreed to do step. positioned step stool . pt completed up/down step stool without AD SBA. pt went back to bed. Left pt with family. informed pt that not PT intervention is needed at this time. pt agreed. Gait Assessment Gait Gait Assistance Required: Standby Assistance Distance (Feet) 75 Able to Maintain Weight Bearing Status Yes During Gait Assistive Devices Assistive Device None,Gait Belt Orthotic/Prosthetic Devices or Brace: No Gait Deviations General Gait Pattern Antalgic Stair Climbing Assessment Evaluation Level of Assist On Stairs Standby Assistance Devices Stair Climbing Assistive Devices None Technique/Endurance Stair Climbing Direction Ascend and Descend Stair Climbing Technique Step to Step Number of Steps Climbed 1 Query Text: Stair Climbing Set # Repetitions (reps) 2 PT-Balance Assessment Sitting Balance and Reactions Static Sitting Balance Ability Normal Dynamic Sitting Balance Ability Normal Standing Balance and Reactions Static Standing Balance Ability Good Dynamic Standing Balance Ability Good Device Used without AD M5 PT-IP Objective Assessments Start: 07/16/24 12:26 Freq: NEEDED Status: Active Protocol: Document 07/16/24 10:45 AB (Rec: 07/16/24 12:36 AB [id number]) Orientation Orientation/Cognition Level of Alertness Alert Gross Range of Motion Lower Extremity ROM Assessment Within Functional Limits Strength Lower Extremity Strength Assessment Within Functional Limits Coordination Assessment Gross Coordination Gross Coordination WNL Sensation Assessment Sensation Gross Sensation WNL Muscle Tone Muscle Tone WNL Yes M6 PT-IP Treatment Start: 07/16/24 12:26 Freq: NEEDED Status: Active Protocol: Document 07/16/24 10:45 AB (Rec: 07/16/24 12:36 AB [id number]) Physical Therapy Treatment Education Education Provided Safety M7 PT-IP Assessment and Plan Start: 07/16/24 12:26 Freq: NEEDED Status: Active Protocol: Document 07/16/24 10:45 AB (Rec: 07/16/24 12:36 AB [id number]) PT Summary Assessment and Plan Potential Rehabilitation Potential Good Status of Condition at Evaluation Stable Summary Impairments Gait,Activity Tolerance Assessment Summary pt is a 68 y/o F with c/o dizziness with BP of 203/89. pt is admitted to r/o CVA. pt is modified independent with bed mobility and only needing SBA for ambulation and stair climbing. SBA provided for safety. pt has her family to assist her at home. No further PT intervention needed at this time. Frequency of Treatment Frequency Of Treatment Discharge Recommendations To Nursing Amount of Assist Needed Standby Assistance Discharge Recommendations Transportation Needs at Discharge Private Vehicle
[2024-07-16] MEDS: MECLIZINE HCL 12.5 MG TABLET 25 MG PO (11:34)
--- NOTE | 2024-07-16 11:50 | OT.IPNOTE ---
Per pt has been independent in the room for OT needs and therefore discharge OT eval orders. Pt has a supportive family to assist with her needs.
[2024-07-16] MEDS: LOSARTAN 25 MG TABLET PO (11:55)
[2024-07-16] MEDS: METOPROLOL ER 50 MG TABLET PO (11:55)
--- NOTE | 2024-07-16 14:47 | P.DS_ITS ---
History of Present Illness History of Present Illness Date Patient Seen: 07/16/24 Time Patient Seen: 14:47 Chief complaint: light headed, dizzy Narrative: Per admitting provider, 68-year-old female with past medical history of hyperlipidemia and hypertension presents with headache and lightheadedness. Per the patient report, the patient does have intermittent chronic lightheadedness. However today, around 2 PM, the patient started to have increasing lightheadedness with a posterior occipital headache. The patient denies any focal weakness, numbness or vertigo. The patient also denies any slurred speech or facial drooping. The patient denies any prior history of known CVA or TIA. The patient denies any fever, chills, nausea, vomiting, chest pain, shortness of breath or syncope. In the emergency room, the patient was hemodynamically stable although was very hypertensive. Systolic blood pressure initially was greater than 220. CT scan of the head and neck with and without contrast shows no vessel occlusion but does suggest possible sign of stroke. The impression was asymmetric right cerebral Fermin Caleb spheric content hypoattenuation which may represent sequela I of an acute infarct or an artifact. MRI of the brain is recommended. Stroke neurology was also consulted who agrees and recommended that we obtain an MRI of the brain in the morning and to monitor the patient overnight. The patient was given aspirin and statin. Labs were relatively benign. The patient was nonfocal on exam per ER physician. Discharge Providers Provider Date of admission: 07/15/24 22:58 Discharge Date: 07/16/24 Primary care physician: Magali Louise MD Consults: 07/15/24 22:29 Consult to Occupational Therapy Evaluate & Treat Comment: Physician Instructions: Evaluate and treat Consult to Physical Therapy Evaluate & Treat Comment: Physician Instructions: Evaluate and Treat Discharge provider: Gerson Yin DO Summary Hospital Course Discharge Diagnosis: Presumed BPPV, possible orthostatic hypotension, CVA ruled out. Hypertensive urgency. Hyperlipidemia. Hospital Course: This is a 68 year old female who presented with a headache and dizziness as well as markedly elevated BP. Her dizziness reported to me was intermittent and associated with movement, improved with rest. Imaging was negative for CVA or hemorrhage, including MRI. Her symptoms improved after admission but she remained markedly hypertensive but she had not been given her home BP medications. After resuming her home medications BP improved to SBP of 175. She continued to have no symptoms. She was evaluated by therapies and deemed appropriate for discharge home. Her home losartan was increased on discharge from 25 to 50 mg daily. Recommend continued PCP follow up for HTN. Presenting symptoms are more consistent with a peripheral vertigo rather than central, if recurs patient was advised to check BP, and trial meclizine to see if improvement. Time Spent with Patient Time spent: Greater than 30 minutes Exam Vital Signs (past 8 hours): - 07/16/24 07:00 07/16/24 07:30 07/16/24 07:36 Temperature Pulse Rate 56 L 66 Respiratory Rate 16 29 H Blood Pressure 230/92 H Pulse Oximetry 96 Oxygen Delivery Method 07/16/24 07:36 07/16/24 08:00 07/16/24 08:30 Temperature Pulse Rate 59 L 58 L 67 Respiratory Rate 26 H 38 H 45 H Blood Pressure Pulse Oximetry 97 Oxygen Delivery Method 07/16/24 09:00 07/16/24 09:09 07/16/24 09:09 Temperature Pulse Rate 60 60 Respiratory Rate 34 H 26 H Blood Pressure 210/84 H Pulse Oximetry Oxygen Delivery Method 07/16/24 09:37 07/16/24 09:49 07/16/24 10:46 Temperature Pulse Rate 68 66 Respiratory Rate 16 Blood Pressure 203/84 H Pulse Oximetry 98 98 Oxygen Delivery Method Room Air 07/16/24 10:46 07/16/24 11:00 07/16/24 11:55 Temperature 98.4 F Pulse Rate 61 61 Respiratory Rate Blood Pressure 203/84 H Pulse Oximetry 96 Oxygen Delivery Method 07/16/24 11:55 Temperature Pulse Rate 61 Respiratory Rate Blood Pressure 203/84 H Pulse Oximetry Oxygen Delivery Method Oxygen Delivery Method Room Air Oxygen Flow Rate 0 Narrative Exam Narrative: Physical Exam: GENERAL: The patient is not in any acute distressed. Awake and alert. HEENT: Nonicteric sclerae, PERRLA, EOMI. Oropharynx clear. Moist mucous membranes. Conjunctivae appear well perfused. HEART: Regular rate and rhythm without murmurs. No lower extremities edema. LUNGS: Clear to auscultation bilaterally. No wheezing, crackles or rhonchi ABDOMEN: Soft, positive bowel sounds, nontender. SKIN: No rash, no excessive bruising, petechiae, or purpura. NEUROLOGIC: AxO x 3. Cranial nerves II-XII intact without motor/sensory deficit. Objective Labs 02/21/25 04:38 07/16/24 04:38 Labs: Laboratory Results - last 24 hr 07/15/24 07/15/24 07/16/24 16:08 16:25 04:38 WBC 7.4 9.2 RBC 4.56 4.43 Hgb 14.0 13.4 Hct 41.5 40.2 MCV 91.0 90.8 MCH 30.8 30.2 MCHC 33.8 33.3 RDW 13.4 13.3 Plt Count 310 309 Neut % (Auto) 50.6 50.6 Lymph % (Auto) 35.5 35.6 [place] % (Auto) 9.9 9.2 Eos % (Auto) 3.5 3.8 Baso % (Auto) 0.5 0.8 Neut # (Auto) 3700 4700 Lymph # (Auto) 2600 3300 [place] # (Auto) 700 900 Eos # (Auto) 300 400 Baso # (Auto) 0 100 PT 11.0 INR 1.0 APTT 49 H Sodium 139 139 Potassium 4.3 3.7 Chloride 106 107 Carbon Dioxide 25 25 BUN 20 H 20 H Creatinine 0.74 0.70 Estimated GFR > 60 > 60 BUN/Creatinine Ratio 27.0 H 28.6 H Glucose 102 102 Hemoglobin A1c 5.3 Calcium 9.1 8.9 Magnesium 2.4 H Total Bilirubin 0.4 AST 30 ALT 23 Alkaline Phosphatase 99 Total Creatine Kinase 76 Troponin I < 0.012 NT-Pro-B Natriuret Pep 130 H Total Protein 7.9 Albumin 4.4 Globulin 3.5 Albumin/Globulin Ratio 1.3 Triglycerides 304 H Cholesterol 191 LDL Cholesterol, Calc 84 HDL Cholesterol 46 Lipase 177 Urine RBC 0-1/hpf Urine WBC 0-1/hpf Ur Squamous Epith Cells 0-1 /hpf Urine Bacteria Occasional (0-1) Ur Culture Indicated? Cult not indicated Vol Urine Centrifuged 10ml (spun) PFSH Social History household members: spouse and family Smoking Status: Current every day smoker Discharge Plan Discharge Plan Patient Disposition: Home Provider Discharge Comment: You were admitted to the hospital with dizziness with concern for possible stroke. Your BP was elevated, but improved with resumption of your home medication but recommend increase in home losartan on discharge. Please continue to keep a log of your BP at home, try to follow up with PCP office after discharge to review hospitalization and check on your symptoms at their next available appointment. Discharge orders & Medications Prescriptions: New meclizine 25 mg tablet 25 mg PO BID PRN (Reason: dizziness) 30 Days Qty: 30 0RF losartan 50 mg tablet 50 mg PO DAILY 30 Days Qty: 30 0RF Continued metoprolol succinate 50 mg tablet extended release 24 hr 50 mg PO DAILY fluticasone propionate 44 mcg/actuation HFA aerosol inhaler 2 puff INHALATION Q4HR Patient Comments: [NO ORIGINAL SIG] albuterol sulfate 90 mcg/actuation HFA aerosol inhaler 2 puff INHALATION Q4HR PRN (Reason: Wheezing) Patient Comments: [NO ORIGINAL SIG] fluticasone propionate 50 mcg/actuation spray,suspension 1 spray INTRANASAL DAILY Patient Comments: [NO ORIGINAL SIG] loratadine 10 mg tablet 10 mg PO DAILY rosuvastatin 20 mg tablet 20 mg PO DAILY Discontinued losartan 25 mg tablet 25 mg PO DAILY Follow up/Referrals: Magali Louise MD [Primary Care Provider] - Diet/Activity/Treatments Diet: Diet as Tolerated, Regular and Low-sodium Activity: As tolerated, no restrictions Visit Report/Discharge Packet Instructions: DI for Heart Failure Stand Alone Forms: Congestive Heart Failure, Patient Portal/API, Stroke Signs & Symptoms Discharge Data Primary Care Provider: Magali Louise
--- NOTE | 2024-07-16 15:40 | CM.DANOTE ---
Initial DCP Assessment Note Pt is a 68 yo female, resident of [place], presents light headed, dizzy, admitted for observation and MRI. MRI neg for stroke, sx improving, patient has been discharged this afternoon. PCP: Magali Louise Payer: [facility] [employer] Reviewed chart, pt discussed w/bedside RN. Patient lives independently in [place] with family and plans to return. Patient is back to functional and cognitive baseline. No barriers identified at this time to patient's safe discharge home w/family to assist; close outpatient f/u recommended. CM team will plan to follow clinical course closely in case any DC needs or concerns arise. CASSIE Baker Discharge Planning/Care Management CM Discharge Assessment Start: 07/16/24 15:39 Freq: Status: Active Protocol: Document 07/16/24 15:39 NADEEN (Rec: 07/16/24 15:40 NADEEN [id number]) Discharge Planning Assessment Assigned Nuclear Officer CASSIE Lilly DPOA/Assigned Designee Name Tomer Harris, spouse Contact Information [phone] Advance Directives? No History Provided By Medical Record Prior Living Arrangements House Household Members spouse,family Type of transporation used prior to Drives own vehicle admit Independent with ADL's Yes Is patient alert and oriented? Yes Barriers to Discharge No Discharge Plan Home Transportation Arrangement Family Referrals Initiated None needed
== END 2024-07-16 15:45 | disposition home or self-care (01) | DRG 149 ==
LOC: ED 22:31 → AC 22:59 → ICU 23:28
PROVIDERS: Student in an Organized Health Care Education/Training Program; Admitting Provider Internal Medicine; Emergency Provider Emergency Medicine; PCP Internal Medicine; Referring Provider Emergency Medicine; Visit Provider Internal Medicine
DX: H81.10 Benign paroxysmal vertigo, unspecified ear (principal); I10 Essential (primary) hypertension; E78.5 Hyperlipidemia, unspecified; I95.1 Orthostatic hypotension; R51.9 Headache, unspecified; F17.210 Nicotine dependence, cigarettes, uncomplicated
CPT/HCPCS: 36415; 70450; 70496; 70498; 70551; 71045; 80048; 80053; 80061; 81003; 81015; 82550; 83036; 83690; 83735; 83880; 84484; 85025; 85610; 85730; 93005; 93010; 94640; 96374; 97161; 99284; 99291; J0360; J1644; Q9967

== ENCOUNTER → 2024-12-07 15:41 | Outpatient (CLI) | payer MEDICARE, OTHER, SELFPAY ==
[2024-07-15 23:52] VITALS: BMI 33.1
--- NOTE | 2024-12-07 15:43 | DI.MG.S_ITS ---
MM screening mammo BI: 12/07/2024. BI-RADS: 1 CLINICAL: 69-year old female for bilateral screening mammogram. Tyrer-Cuzick lifetime risk of 2.8%. No personal or first-degree family history of breast cancer. PRIOR EXAMS 10/02/2023, 12/20/2021. MAMMOGRAPHY TECHNIQUE: 2D and 3D (tomosynthesis) digital mammographic views obtained, with additional images as needed for full coverage. Current study was also evaluated with a Computer Aided Detection (CAD) system. DENSITY B. There are scattered areas of fibroglandular density. MAMMOGRAPHY FINDINGS Bilateral: No suspicious mass, asymmetry, microcalcification, or other abnormality seen. IMPRESSION: * No evidence of malignancy. RECOMMENDATIONS Bilateral * Annual screening mammography. OVERALL ASSESSMENT CATEGORY BI-RADS-1: Negative. The [employer] recommends annual screening mammography beginning at age 40 for women with average risk of breast cancer. ELECTRONICALLY SIGNED: Lex Leal M.D. on 12/08/2024 at 09:16:02 AM PT Interpreting Station ID: [id number]
== END ==
PROVIDERS: PCP Internal Medicine; Referring Provider Internal Medicine; Visit Provider Internal Medicine
DX: Z12.31 Encounter for screening mammogram for malignant neoplasm of breast (principal)
CPT/HCPCS: 77063; 77067

== ENCOUNTER → 2025-05-15 12:02 | Outpatient (CLI) | payer MEDICARE, OTHER, SELFPAY ==
[2024-07-15 23:52] VITALS: BMI 33.1
[2025-05-15 15:55] LABS: Influenza A - CEPHEID Flu A NEGATIVE (NEGATIVE); Influenza B - CEPHEID Flu B NEGATIVE (NEGATIVE)
[2025-05-15 15:56] LABS: COVID-19 CEPHEID 4-PLEX PCR Negative (Negative)
== END ==
PROVIDERS: PCP Internal Medicine; Visit Provider Chiropractor
DX: J02.9 Acute pharyngitis, unspecified (principal)
CPT/HCPCS: 87637